=== PATIENT | female | born 1960 | race Caucasian/White ===

== ENCOUNTER 2019-04-09 05:05 | Day surgery (SDC) | payer OTHER ==
[~2019-04-09 05:05] MED LIST: FOSAMAX70 MG PO; GAS RELIEF 8080 MG PO; HYOSCYAMINE0.125 M1 SL; NORVASC10 MG PO; OXYC1TAB9 PO; ZOCOR20 MG PO
== END 2019-04-09 12:10 | disposition home or self-care (01) ==
LOC: AMB-ENDOS 05:05
DX: D12.5 Benign neoplasm of sigmoid colon (principal); Z85.038 Personal history of other malignant neoplasm of large intestine; Z08 Encounter for follow-up examination after completed treatment for malignant neoplasm

== ENCOUNTER 2020-06-02 06:10 | Day surgery (SDC) | payer OTHER | END 2020-06-02 09:45 | disposition home or self-care (01) | LOC: AMB-ENDOS 06:10 | PROVIDERS: ATTEND Surgery | DX: D12.5 Benign neoplasm of sigmoid colon (principal); K64.8 Other hemorrhoids ==